=== PATIENT | female | born 1955 | race Caucasian/White ===

== ENCOUNTER → 2019-02-22 19:11 | Outpatient (CLI) | payer BC | END | disposition home or self-care (01) | LOC: D.LABREF 19:11 | PROVIDERS: ATTEND Urology | DX: R31.9 Hematuria, unspecified (principal) ==

== ENCOUNTER 2019-03-09 06:24 | Day surgery (SDC) | payer BC ==
[~2019-03-09] VITALS: Ht 167.6 cm; Wt 71.7 kg
[~2019-03-09 06:24] MED LIST: CALCIUM 600 +1 EAC3 PO; ZOCOR20 MG PO; ZYRTEC10 MG PO
[2019-03-09 07:27] LABS: HEMATOCRIT 39.4 % (36.0-48.0); HEMOGLOBIN 13.7 g/dL (12-16); MCH 32.7 pg (26.0-34.0); MCHC 34.8 g/dL (31.0-37.0); MEAN PLATELET VOLUME 9.2 fL (7.4-10.4); RBC 4.19 10x6/uL (4.00-5.40); RDW 12.5 % (11.5-14.5); WBC 5.4 10x3/uL (4.8-10.8)
[2019-03-09 07:58] VITALS: BP 139/84; Ht 167.6 cm; Wt 71.7 kg
--- NOTE | 2019-03-09 15:25 | OP ---
PATIENT NAME: WILIAN GIRALDO MEDICAL RECORD: [id number] LOCATION:D.OPS ADMISSION DATE: SURGEON: ARMEN DEL CID MD DATE OF OPERATION: 03/09/2019 SURGEON: Armen Del Cid MD ANESTHESIA: TIVA by Juani Hart CRNA. DIAGNOSIS: Interstitial cystitis. PROCEDURES: Cystoscopy, hydrodistention, intravesical Rimso instillation. FINDINGS: Single ureteral orifices bilaterally, no bladder tumors. Diffuse bladder inflammation. BLOOD LOSS: None. CLINICAL HISTORY: This is a 63-year-old female, who has symptoms of "frequent UTI". Her urine cultures have not shown any growth. She has microscopic hematuria on urinalysis. She continues to have suprapubic pains, urgency without incontinence, nocturia times 3 and daytime urinary frequency every 3 hours. Her symptoms are quite suggestive of interstitial cystitis. When I saw her in the office, her urinalysis was entirely normal. We sent the urine for cytology. The cytology showed no tumor cells. She comes today for cystoscopy and treatment of interstitial cystitis. SHE IS ALLERGIC TO SULFA AND CODEINE. 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 DESCRIPTION OF PROCEDURE: The patient was given IV sedation. She was then placed into lithotomy position. Cystoscopy was performed using a 17-Finnish cystoscope. Findings are as outlined above. I distended the bladder to 500 mL and kept the volume in there for about 2-3 minutes. The bladder was then emptied. During the time of the bladder was distended, it became quite angry and red. We then emptied the bladder through the cystoscope sheath. A 16-Finnish red rubber catheter was inserted into the bladder. Through the lumen of the catheter, we instilled mL of Rimso solution. Once the solution was in the bladder, the catheter was removed, leaving the solution in the bladder. She will hold the solution in the bladder for 15 minutes and then void it out. I will see her in followup in 2 weeks' time to see if there has been any relief of her bladder symptoms. TRANSINT:[id number] Voice Confirmation ID: [id number] DOCUMENT ID: [id number] ARMEN DEL CID MD at 1527 CC: [id number] DICTATION DATE: 03/09/19 1025 EIGHT ARM OPERATOR: 03/09/19 1458 [facility] 03/09/19 [facility] [address] [place] [address]
== END 2019-03-09 11:20 | disposition home or self-care (01) ==
LOC: D.OPS 06:24
PROVIDERS: Anesthesiology; ATTEND Urology
DX: N30.11 Interstitial cystitis (chronic) with hematuria (principal); Z88.5 Allergy status to narcotic agent; Z88.2 Allergy status to sulfonamides; Z01.812 Encounter for preprocedural laboratory examination

== ENCOUNTER → 2019-03-23 16:28 | Outpatient (CLI) | payer BC | END | disposition home or self-care (01) | LOC: D.LABREF 16:28 | DX: R82.5 Elevated urine levels of drugs, medicaments and biological substances (principal); D72.829 Elevated white blood cell count, unspecified ==